=== PATIENT | female | born 1955 | race Caucasian/White ===

== ENCOUNTER 2017-01-07 09:50 | Emergency (ER) | payer BC ==
--- NOTE | 2017-01-07 10:54 | ED ---
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 She was using a mandoline while cutting cucumbers and sliced her a chunk of her skin on thumb. Patient states she wouldn't of came she just couldn't get the bleeding to stop. Patient denies pain, numbness and tingling. No other injuries. FROM. No PMHx or medications. Not on anticoagulants. - History of Current Complaint Stated Complaint: RT HAND /FINGER LAC Time Seen by Provider: 01/07/17 09:55 Hx Obtained From: Patient Onset/Duration: Sudden Onset Aggravating: Movement Alleviating: Compression Timing: Constant Current Severity: None Pain Intensity: 0 Pain Scale Used: 0-10 Numeric Associated Signs & Symptoms: Negative Related Hx: Dominant Hand (Right) - Allergy/Home Medications Allergies/Adverse Reactions: Allergies Allergy/AdvReac Type Severity Reaction Status Date / Time Penicillins [PCN] Allergy Rash Verified 01/07/17 10:15 PMH/Surg Hx/FS Hx/Imm Hx Endocrine/Hematology History: Denies: Hx Diabetes Cardiovascular History: Denies: Hx Hypertension - Surgical History Surgery Procedure, Year, and Place: none - Immunization History Date of Tetanus Vaccine: unknown will update today 01/07/17 Immunizations Up to Date: Yes Infectious Disease History: No Infectious Disease History: Denies: Traveled Outside the [place] in Last 30 Days - Family History Known Family History: Positive: None - Social History Alcohol Use: Occasionally Substance Use Type: Reports: None Smoking Status (MU): Never Smoked Tobacco Review of Systems Constitutional: Negative Cardiovascular: Negative Respiratory: Negative Musculoskeletal: Negative Positive: Other - laceration Neurological: Negative All Other Systems Reviewed And Are Negative: Yes Physical Exam Triage Information Reviewed: Yes Vital Signs On Initial Exam: Initial Vitals Temp Pulse Resp BP Pulse Ox 97.9 F 70 16 159/87 99 01/07/17 09:51 01/07/17 09:51 01/07/17 09:51 01/07/17 09:51 01/07/17 09:51 elevated BP noted will re-check at d/c Vital Signs Reviewed: Yes Appearance: Positive: Well-Appearing, No Pain Distress, Well-Nourished Skin: Positive: Warm, Skin Color Reflects Adequate Perfusion - < 2 sec cap refill, Dry, Erythema @ - anterior right thumb on finger pad distally, small superficial skin avulsion/amputation. just of epidermal layer, no tendon, adipose tissue or SQ tissue appreciated. oozing bleeding. irrigated and dressed without complication. circulation and sensation intact. no FB. circular and approximatley 1cm in length.. Negative: Cold, Numb, Tender, Cyanosis @, Pale Head/Face: Positive: Normal Head/Face Inspection Eyes: Positive: Conjunctiva Clear ENT: Positive: Hearing grossly normal Neck: Positive: Supple, Nontender Respiratory/Lung Sounds: Positive: Clear to Auscultation, Breath Sounds Present. Negative: Rales, Rhonchi, Wheezes Cardiovascular: Positive: Normal, RRR, Pulses are Symmetrical in both Upper and Lower Extremities - 2+ radial b/l. Negative: Murmur, Rub Musculoskeletal: Positive: Normal, Strength/ROM Intact Neurological: Positive: Normal, Sensory/Motor Intact - sensation intact, Alert, Oriented to Person Place, Time, CN Intact II-III, Reflexes Intact, NV Bundle Intact Distally Psychiatric: Positive: Affect/Mood Appropriate Diagnostics - Vital Signs Vital Signs Temp Pulse Resp BP Pulse Ox 01/07/17 10:11 98.6 F 73 18 150/85 98 01/07/17 09:51 97.9 F 70 16 159/87 99 - Laboratory Lab Statement: Any lab studies that have been ordered have been reviewed, and results considered in the medical decision making process. Laceration Repair Course/Dx - Course Course Of Treatment: no x-ray required due to PE findings and DANNA. patient's avulsion of skin was dressed with xeroform and gauze/coband. bleeding controlled. no complications. keep clean and dry. dressing on for 2 days. follow up with pcp. tetanus updated. aware of worsening signs and symptoms. - Differential Dx Differental Diagnoses: Abrasion, Avulsion, Laceration, Tenosynovitis, Other - amputation - Clinical Impression Provider Diagnoses: Avulsion of skin of thumb without complication Discharge - Discharge Plan Condition: Stable Disposition: HOME Patient Education Materials: Laceration (ED) Referrals: Ernesto Lawton MD [Primary Care Provider] - Additional Instructions: Do not get dressing wet for 24-48 hours. Then change and re-apply after allowing wound to get some air. Keep on for another day or two. Keep clean and dry. Apply pressure and elevate. If bleeding reoccurs or new symptoms develop please seek medical attention. Follow up with PCP.
[2017-01-07] MEDS ORDERED: Tetan/Diph/Pertus SYR(Tdap)* 0.5 ML SYR(BOOSTRIX) use SYR IM ONE (11:12)
[2017-01-07 11:37] VITALS: BP 148/110
== END 2017-01-07 11:35 | disposition home or self-care (01) ==
LOC: ED 09:50
DX: S61.011A Laceration without foreign body of right thumb without damage to nail, initial encounter (principal); W45.8XXA Other foreign body or object entering through skin, initial encounter; Y93.89 Activity, other specified; Y92.9 Unspecified place or not applicable
CPT/HCPCS: 90471; 90715; 99282

== ENCOUNTER 2017-12-08 07:03 | Day surgery (SDC) | payer BC ==
--- NOTE | 2017-11-29 16:24 | HP ---
CC: Dr. Goddard, Family Medicine * DATE OF ADMISSION: 12/08/2017. This patient is scheduled for Same Day Surgery admission by Dr. Santana. DATE OF PREOPERATIVE HISTORY AND PHYSICAL EXAMINATION: Wednesday, November 29, 2017. ATTENDING SURGEON: Dr. Nick Santana * (dictated by Samantha Flynn NP). CHIEF COMPLAINT: Right breast nodules. HISTORY OF PRESENT ILLNESS: The patient is a 62-year-old female recently evaluated by Dr. Santana for right breast nodules that were found on routine screening imaging. She has a history of previous breast surgeries in 2004 and 2005 for atypical ductal hyperplasia and atypical papillomas. She has not had any procedures in the interim. She denies breast pain, bleeding, or nipple discharge. Dr. Santana examined the patient and noted that the right breast is approximately 30 percent smaller than the left because of previous surgery. There are no palpable masses or other abnormalities. Dr. Santana reviewed her ultrasound and discussed the findings with her at length and documented that the nodules are indeterminate and they are not highly suspicious, but they appear to be solid and do merit some kind of biopsy. The patient requested right simple mastectomy as she is not inclined to undergo image-guided biopsies. Dr. Santana discussed the nature of right simple mastectomy and the optional methods of treatment, the relevant risks and benefits, and today I reviewed the expected postoperative care and recovery. The patient has had a chance to ask questions and stated that she understands the information and is satisfied with the answers given to her questions. She will sign surgical consent on the day of surgery. 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 PAST SURGICAL HISTORY: Tonsillectomy 1974, tubal ligation 1985, excision of breast abnormality 2004 and 2005. OB HISTORY: 2, para 2. She is up-to-date with pelvic and pap smear. MEDICATIONS: Limited to the following supplements: 1. Multivitamin one tablet daily. 2. Vitamin C 500 mg p.o. daily. 3. Magnesium 250 mg p.o. daily. 4. Cranberry supplement 4200 mg daily. ALLERGIES: PENICILLIN CAUSES RASH. FAMILY HISTORY: No known breast or ovarian cancer. No known anesthesia complications. The patient's mother had a history of deep vein thrombosis. No known bleeding tendencies. SOCIAL HISTORY: She is and is employed as a middle school volleyball coach. She has never been a smoker. She drinks alcohol two to three times per week and denies the use of other substances and exercises regularly by walking. REVIEW OF SYSTEMS: Constitutional: No fevers, chills, excessive fatigue, or weight loss. Endocrine: No diabetes or thyroid disease. Hematologic: No easy bruising or bleeding. No blood transfusions. Breasts: As described in history of present illness. Respiratory: No dyspnea on exertion. No chronic cough. Cardiovascular: No anginal chest pain or palpitations. Gastrointestinal : No nausea, vomiting, diarrhea, GI bleeding, or constipation. Genitourinary: No dysuria. Musculoskeletal: No back or joint pain. Neurologic: No headache or blurred vision. No areas of focal weakness. Normal gait. General: No previous anesthesia complications. No history of deep vein thrombosis or pulmonary embolism. PHYSICAL EXAMINATION GENERAL: The patient is a 62-year-old female, well-developed, well-nourished, in no acute distress. VITAL SIGNS: Height 62 inches, weight 169 pounds, body mass index 30.9. Blood pressure 132/84, pulse 72 and regular, respiratory rate 18, temperature 97 tympanic. SKIN: Warm, dry, intact. HEENT: Benign. NECK: Supple. No cervical lymphadenopathy, no supraclavicular lymphadenopathy. LUNGS: Breath sounds bilaterally clear and equal. HEART: Regular rate and rhythm. No murmurs or rubs appreciated. BREASTS: The right breast is approximately 30 percent smaller than the left. There is a moderately large scar on the upper part of the right breast consistent with multiple surgeries. The skin is otherwise normal. There are no palpable masses. There is no nipple discharge. Left breast: No palpable masses, no skin changes, no nipple discharge. No axillary adenopathy bilaterally. ABDOMEN: Active bowel sounds, soft, nondistended, nontender. No obvious masses , organomegaly, or evidence of ventral hernia. EXTREMITIES: Warm without edema or skin ulceration. PELVIC: Done within the past year, not repeated. RECTAL: Done within the past year, not repeated. NEUROLOGIC: Alert and oriented times three, steady gait. IMPRESSION: Right breast nodules. PLAN: Same Day Surgery admission to Dr. Santana's service for right simple mastectomy on November. LORI FLYNN, [employer] ASSEMBLER [id number]/[facility] #: [id number] MINDY
[~2017-12-08 07:03] MED LIST: Buffered Lidocaine 0.9% SYRIN* 5 ML/SYR SYRINGE INTRADERM ONE; Dexamethasone TAB* 4 MG PO ONE; DiMENhydriNATE IV* 50 MG/ML VIAL IV PUSH PRN; Famotidine IV* 10 MG/ML 2 ML (20 mg) IV ONE; Morphine INJ* 2 MG/ML 1 ML CARPUJECT IV PRN; Naloxone* 0.4 MG/ML 1 ML VIAL IV PRN; PROCHLORPERAZINE INJ 5 MG/ML 2 ML VIAL IV PRN; Scopolamine 1.5 mg* PATCH TRANSDERM PRN; fentaNYL* 50 MCG/ML 2 ML VIAL (100 MCG VIAL) IV PRN; oxyCODONE/Acetamin 5/325 MG* TAB PO PRN
[2017-12-08] MEDS ORDERED: Ondansetron ODT TAB* 4 MG ONE (07:08)
[2017-12-08] MEDS ORDERED: Dexamethasone TAB* 4 MG ONE (07:08)
[2017-12-08] MEDS ORDERED: Gabapentin CAP(*) 300 MG ONE (07:08)
[2017-12-08] MEDS ORDERED: Famotidine IV* 10 MG/ML 2 ML (20 mg) ONE (07:08)
[2017-12-08] MEDS ORDERED: Clindamycin 900 MG IVPREMIX(* 900 MG/50 ML SDV IV ONE (07:09)
[2017-12-08] MEDS ORDERED: Heparin VIAL(*) 5000 UNITS/ML VIAL (FIVE THOUSAND) ONE (07:09)
[2017-12-08] MEDS ORDERED: Ondansetron TAB* 4 MG PO ONE (07:30)
[2017-12-08] MEDS ORDERED: Gabapentin CAP(*) 300 MG PO ONE (07:30)
[2017-12-08] MEDS ORDERED: Midazolam* 1 MG/ML 5 ML VIAL (5 MG) ONE (07:46)
[2017-12-08] MEDS ORDERED: KETAMINE HCL* 50 MG/ML 10 ML VIAL ONE (07:46)
[2017-12-08] MEDS ORDERED: fentaNYL* 50 MCG/ML 2 ML VIAL (100 MCG VIAL) ONE (07:46)
[2017-12-08] MEDS ORDERED: Lidocaine 1% MPF wEPI 200,000* 30 ML SDV ONE (08:19)
[2017-12-08] MEDS ORDERED: Bupivacaine 0.5% SDV PF* 30ML VIAL ONE (08:19)
[2017-12-08] MEDS ORDERED: Lidocaine 2% PF * 5 ML VIAL ONE (09:02)
[2017-12-08] MEDS ORDERED: Ketorolac INJ* 30 MG/ML 1 ML VIAL ONE (09:02)
[2017-12-08] MEDS ORDERED: Propofol* 10 MG/ML 20 ML BTL IV PUSH ONE (09:02)
[2017-12-08] MEDS ORDERED: PROCHLORPERAZINE INJ 5 MG/ML 2 ML VIAL ONE (09:02)
[2017-12-08] MEDS ORDERED: Morphine INJ* 10 MG/ML 1 ML CARPUJECT ONE (09:05)
[2017-12-08] MEDS ORDERED: EPHEDrine (Pressors)* 50 MG/ML VIAL ONE (09:10)
[2017-12-08 12:49] VITALS: BP 105/76
--- NOTE | 2017-12-08 22:08 | OP ---
CC: Dr. Goddard, [facility] * DATE OF OPERATION: 12/08/17 - SDS DATE OF : 53 SURGEON: Nick Santana MD NICKER AND BREAKER: Crystal Flynn NP ANESTHESIOLOGIST: Dr. Crockett. ANESTHESIA: General anesthetic, local anesthesia. PRE-OP DIAGNOSIS: Multiple right breast lesions. POST-OP DIAGNOSIS: Multiple right breast lesions. OPERATIVE PROCEDURE: Right mastectomy. DESCRIPTION OF PROCEDURE: The patient was supine on the operative table. After adequate general anesthetic, compression stockings, Morenita Hugger warmer, and intravenous antibiotics, the right chest was prepped with antiseptic, draped in a sterile fashion. Elliptical incision was mapped out encompassing the nipple areolar complex as well as the previous incisions and skin incision was created and electrocautery used to create the inferior and superior flaps. The breast was taken off the pectoralis muscle without difficulty, it was marked with a suture lateral and sent in formalin for pathologic evaluation. Hemostasis was obtained using cautery or ligature where appropriate and the ROSIE drain was brought through a lateral stab wound and sutured at the skin with 3-0 Prolene. The closure was accomplished using 3-0 Vicryl and skin benigno followed by sterile dressing. She tolerated the procedure well, was awakened and brought to recovery in good condition. There were no complications. Drain is Yang-Holley. Sponge, instruments counts correct. Estimated blood loss was 30 mL. [id number]/[facility] #: [id number] MTDD
[2017-12-11] MEDS ORDERED: Scopolamine PATCH Remove* 1 NOTE MISC PATCH OFF ONE (05:42)
== END 2017-12-08 13:18 | disposition home or self-care (01) ==
LOC: OR 07:03
PROVIDERS: ATTEND Surgery
DX: D24.1 Benign neoplasm of right breast (principal); Z87.891 Personal history of nicotine dependence
CPT/HCPCS: 88307; A9270-GY; J0780; J1644; J1885; J2001; J2250; J2270; J2704; J3010; J8540

== ENCOUNTER 2019-12-18 07:12 | Observation (INO) ==
[~2019-12-18 07:12] MED LIST changes: -Buffered Lidocaine 0.9% SYRIN* 5 ML/SYR SYRINGE INTRADERM ONE; +Buffered Lidocaine 1% SYRIN 1 ml INTRADERM ONE; -Dexamethasone TAB* 4 MG PO ONE; -DiMENhydriNATE IV* 50 MG/ML VIAL IV PUSH PRN; -Famotidine IV* 10 MG/ML 2 ML (20 mg) IV ONE; +Lactated Ringers 1000 ml BAG 1,000 ML IV SCH; -Morphine INJ* 2 MG/ML 1 ML CARPUJECT IV PRN; -Naloxone* 0.4 MG/ML 1 ML VIAL IV PRN; -PROCHLORPERAZINE INJ 5 MG/ML 2 ML VIAL IV PRN; -Scopolamine 1.5 mg* PATCH TRANSDERM PRN; -fentaNYL* 50 MCG/ML 2 ML VIAL (100 MCG VIAL) IV PRN; -oxyCODONE/Acetamin 5/325 MG* TAB PO PRN
[2019-12-18] MEDS ORDERED: Clindamycin 900 MG/D5W BAG(*) 900 MG/50 ML BAG IVPB ONE (07:47)
[2019-12-18] MEDS ORDERED: Midazolam 2 mg/2 ml VIAL 1 mg/ml 2 ml VIAL (2 mg) ONE ×2 (08:06→08:36)
[2019-12-18] MEDS ORDERED: Lidocaine 2% PF 5 ML VIAL ONE ×2 (08:06→08:36)
[2019-12-18] MEDS ORDERED: fentaNYL 100 mcg/2 ml 50 MCG/ML VIAL ONE ×2 (08:06→10:42)
[2019-12-18] MEDS ORDERED: Propofol 10 MG/ML 20 ML BTL ONE (08:06)
[2019-12-18] MEDS ORDERED: Metoclopramide 5 MG/ML VIAL (10 mg) IV PRN (08:34)
[2019-12-18] MEDS ORDERED: fentaNYL 100 mcg/2 ml 50 MCG/ML VIAL IV PRN (08:34)
[2019-12-18] MEDS ORDERED: Naloxone 0.4 mg VIAL 0.4 mg/ml 1 ml VIAL IV PRN (08:34)
[2019-12-18] MEDS ORDERED: Dexmedetomidine 200 mcg/2 ml 2 ml VIAL (200 mcg) ONE (08:36)
[2019-12-18] MEDS ORDERED: ROPIVACAINE 5 MG/ML 30 ML BTL (0.5%) ONE ×2 (08:56→09:49)
[2019-12-18] MEDS ORDERED: Succinylcholine 200 mg VIAL 20 mg/ml 10 ml VIAL (200 mg) ONE (10:13)
[2019-12-18] MEDS ORDERED: Dexamethasone IV 4 MG/ML VIAL 1 ml VIAL ONE (10:13)
[2019-12-18] MEDS ORDERED: Acetaminophen IV 1 GM/100ML 100 ML ONE (10:13)
[2019-12-18] MEDS ORDERED: Ondansetron 4 mg VIAL 2 MG/ML 2 ml VIAL ONE (10:13)
[2019-12-18] MEDS ORDERED: HYDROmorphone 1 MG/1 ML SYRINGE ONE (12:09)
[2019-12-18] MEDS ORDERED: Ondansetron 4 mg VIAL 2 MG/ML 2 ml VIAL IV PRN (12:22)
[2019-12-18] MEDS ORDERED: diPHENhydraMINE 25 mg TAB PO PRN (12:22)
[2019-12-18] MEDS ORDERED: oxyCODONE/Acetamin 5/325 mg TAB PO PRN (12:22)
[2019-12-18] MEDS ORDERED: Magnesium Hydroxide LIQ 30 ML UDC PO PRN (12:22)
[2019-12-18] MEDS ORDERED: Lactulose 30 ml UDC PO PRN (12:22)
[2019-12-18] MEDS ORDERED: Ondansetron ODT 4 mg TAB 4 MG TAB PO PRN (12:22)
[2019-12-18] MEDS ORDERED: diPHENhydraMINE IV 50 MG/ML 1 ml VIAL (BENADRYL) IV PRN (12:22)
[2019-12-18] MEDS ORDERED: Morphine 2 MG/ML SYRINGE IV PRN (12:22)
[2019-12-18] MEDS: Lactated Ringers 1000 ml BAG 1,000 ML IV SCH (13:42)
[2019-12-18] MEDS: Clindamycin 600 MG/D5W BAG(*) 600 MG/50 ML BAG IV SCH (17:58)
[2019-12-18] MEDS: Magnesium Hydroxide LIQ 30 ML UDC PO SCH (21:40)
[2019-12-19] MEDS: Lactated Ringers 1000 ml BAG 1,000 ML IV SCH (00:27)
[2019-12-19] MEDS: Clindamycin 600 MG/D5W BAG(*) 600 MG/50 ML BAG IV SCH ×2 (02:51→10:33)
[2019-12-19 08:29] LABS: Hematocrit 36 % (35-47); Hemoglobin 12.6 g/dL (12.0-16.0); Mean Platelet Volume 7.9 fL (7.4-10.4); Platelet Count 306 10^3/uL (150-450)
[2019-12-19 08:49] LABS: BUN/Creatinine Ratio 17.3 (8-20); Calcium 8.9 mg/dL (8.6-10.3); EGFR African American 93.8 (>60); EGFR Non-African American 77.6 (>60); Potassium 4.5 mmol/L (3.5-5.0)
[2019-12-19] MEDS: Magnesium Hydroxide LIQ 30 ML UDC PO SCH (09:00)
[2019-12-19] MEDS ORDERED: Pneumococcal Vac 23-Polyvalent SUBCUT ONE (09:00)
[2019-12-19] MEDS ORDERED: Vitamin THERAPEUTIC TAB PO SCH (09:00)
[2019-12-19 11:16] VITALS: BP 125/65
== END 2019-12-19 12:40 | disposition home or self-care (01) ==
LOC: INTOOBSV 07:12 → AA 07:12 → SSU 12:22
PROVIDERS: ADMIT Orthopaedic Surgery Adult Reconstructive Orthopaedic Surgery; ATTEND Orthopaedic Surgery Adult Reconstructive Orthopaedic Surgery